=== PATIENT | male | born 1970 | race Caucasian/White ===

== ENCOUNTER 2016-04-13 13:33 | Emergency (ER) | payer OTHER | END 2016-04-13 16:26 | disposition left against medical advice (07) | LOC: ER 13:33 | DX: Z53.21 Procedure and treatment not carried out due to patient leaving prior to being seen by health care provider (principal) | CPT/HCPCS: 99281 ==

== ENCOUNTER 2016-04-14 15:07 | Emergency (ER) | payer OTHER ==
[2016-04-15] MEDS ORDERED: ASPIRIN 81 MG CHEW TAB ONE (03:12)
== END 2016-04-14 17:43 | disposition home or self-care (01) ==
LOC: ER 15:07
DX: R00.2 Palpitations (principal); I49.3 Ventricular premature depolarization; Z79.899 Other long term (current) drug therapy; F17.210 Nicotine dependence, cigarettes, uncomplicated
CPT/HCPCS: 36415; 71010; 80053; 82553; 83735; 84484; 85025; 93005